=== PATIENT | female | born 1955 | race Caucasian/White ===

== ENCOUNTER → 2017-03-23 | Outpatient (CLI) | payer BC ==
[~2017-03-23] VITALS: Ht 162.6 cm; Wt 72.9 kg
[~2017-03-23] MED LIST: ADAL20KI INJ; BIOT1CAP8 PO; BTH25 PO; CHOL20009 PO; CITA20TA9 PO; DEXL60CA4 PO; FOLI1TAB7 PO; FRN PO; LEVAAER2 INH; MTH25 PO; PROP120C PO; QVRINH80 INH; RIZA10TA18 PO; SUMA6KIT2 SQ; TOPI50TA16 PO; TRAM-10 PO
[2017-03-23 15:03] VITALS: BP 125/80; PULSE 83; Ht 162.6 cm; Wt 72.9 kg
== END | disposition home or self-care (01) ==
LOC: C.NEUR 14:31
PROVIDERS: ATTEND Physician Assistant
DX: G47.61 Periodic limb movement disorder (principal)

== ENCOUNTER → 2017-11-02 | Outpatient (CLI) | payer BC ==
[~2017-11-02] MED LIST changes: -FOLI1TAB7 PO; +FOLI1TAB8 PO; +QUDEXY PO; -TOPI50TA16 PO
[2017-11-02 13:19] LABS: BASO % 1.6 %; BASO ABS # 0.06 K/uL (0-0.2); EOS % 4.1 %; EOS ABS # 0.16 K/uL (0-0.5); HEMATOCRIT 36.9 % (37-47); HEMOGLOBIN 12.9 g/dL (12.0-16.0); LYMPH % 35.7 %; LYMPH ABS # 1.38 K/uL (1.2-3.4); MEAN CELL VOLUME 92.3 fL (80-100); MEAN CORPUSCULAR HEMOGLOBIN 32.3 pg (25-34); MEAN PLATELET VOLUME 9.1 fL (7.4-10.4); MONO % 10.3 %; NEUT % 48.3 %; NEUT ABS # 1.87 K/uL (1.4-6.5); PLATELET COUNT 289 K/uL (130-400); RED CELL DISTRIBUTION WIDTH CV 14.1 % (11.5-14.5); RED CELL DISTRIBUTION WIDTH SD 47.5 fL (36.4-46.3); WHITE BLOOD COUNT 3.87 K/uL (4.8-10.8)
[2017-11-02 15:52] LABS: ALBUMIN 3.9 gm/dl (3.4-5.0); ALT/SGPT 29 U/L (12-78); AST/SGOT 20 U/L (15-37); BLOOD UREA NITROGEN 10 mg/dl (7-18); CALCIUM 9.1 mg/dl (8.5-10.1); CARBON DIOXIDE 26 mmol/L (21-32); CREATININE 0.68 mg/dl (0.60-1.20); GLUCOSE 85 mg/dl (70-99); POTASSIUM 3.9 mmol/L (3.5-5.1); SODIUM 139 mmol/L (136-145)
[2017-11-02 16:03] LABS: ALKALINE PHOSPHATASE 70 U/L (45-117); CHOLESTEROL 280 mg/dl (0-200); LDL CHOLESTEROL CALCULATED 194 mg/dl; TOTAL PROTEIN 7.1 gm/dl (6.4-8.2)
== END | disposition home or self-care (01) ==
LOC: C.LABBC 10:34
PROVIDERS: ATTEND Internal Medicine Geriatric Medicine
DX: D64.9 Anemia, unspecified (principal); E78.5 Hyperlipidemia, unspecified; I10 Essential (primary) hypertension; M06.9 Rheumatoid arthritis, unspecified; G43.709 Chronic migraine without aura, not intractable, without status migrainosus

== ENCOUNTER → 2018-03-18 | Outpatient (CLI) | payer BC ==
[~2018-03-18] VITALS: Ht 165.1 cm; Wt 72.2 kg
[~2018-03-18] MED LIST changes: -BTH25 PO; -CITA20TA9 PO; +DTR2 PO; -PROP120C PO; -QUDEXY PO; -TRAM-10 PO
[2018-03-18 15:22] VITALS: BP 109/71; PULSE 73; Ht 165.1 cm; Wt 72.2 kg
== END | disposition home or self-care (01) ==
LOC: C.NEUR 13:53
PROVIDERS: ATTEND Physician Assistant
DX: G47.61 Periodic limb movement disorder (principal); F41.8 Other specified anxiety disorders; I10 Essential (primary) hypertension; Z79.899 Other long term (current) drug therapy

== ENCOUNTER 2022-08-14 13:36 | Observation (INO) ==
[2022-08-14] MEDS ORDERED: SODIUM CHLORIDE 0.9% 500 ML IV STA (14:07)
--- NOTE | 2022-08-14 14:12 | Emergency Department Note ---
Impression & Plan Palpitations, Precordial chest pain, Elevated troponin ED Provider Note NAME: MAIRA RYAN AGE: 67 SEX: F : 1955 ARRIVES VIA: Ambulance INFORMANT: [Patient] ED PROVIDER(S): [Danny Marx MD] CHIEF COMPLAINT: Chest pain, palpitations HISTORY OF PRESENT ILLNESS: The patient is a 67-year-old female who presents with an episode of palpitations and chest pain that started about 3 hours ago. The whole episode lasted about 30 minutes. The chest pain was described as mild. More so, she felt her heart racing. She felt nauseated, no sweating or shortness of breath. She felt somewhat faint. The patient had been shoveling snow, she felt fine shelving. She went into the house and sat down. While she was sitting, her heart began to race. The heart rate was over 200 by her count. She has no previous cardiac history, no history of diagnosed SVT, A. fib or a flutter. The patient states that she is very active on a daily basis. She typically shovels snow without any difficulty. She has been in baseline health lately. REVIEW OF SYSTEMS: See HPI for pertinent positives and negatives. A total of ten systems were reviewed and were otherwise negative. PMHx/PSHx: See Below SOCIAL HISTORY: See Below. PHYSICAL EXAM: GENERAL: Patient is in no acute distress. HEENT: No acute trauma, normocephalic atraumatic, mucous membranes moist, no nasal congestion, no scleral icterus. NECK: No stridor, no adenopathy, no meningismus, trachea is midline. LUNGS: Clear to auscultation bilaterally, no wheeze, no rhonchi, breath sounds equal. HEART: Without murmurs gallops or rubs, regular rate and rhythm. ABDOMEN: Soft, nontender, bowel sounds positive, no peritonitis. EXTREMITIES: No cyanosis or edema, full range of motion of all the joints wi thout pain or difficulty, no signs for acute trauma. NEUROLOGIC: Oriented x 3, no acute motor or sensory deficits, no focal weakness. SKIN: No rash, no jaundice, no diaphoresis. DIFFERENTIAL DIAGNOSIS: SVT, atrial fibrillation, atrial flutter, sinus tachycardia, V. tach, electr olyte imbalance, thyroid disorder, HI, among others. EMERGENCY DEPARTMENT COURSE/PROCEDURES: ECG: Indication was chest pain and palpitations. The ECG shows a normal sinus rhythm with a rate of 92. There is no ST elevation, no PVCs. The QTc is 425. Continuous Cardiac Monitoring: An order was placed for continuous cardiac jeremias toring. The monitor shows a rate of 91 with normal sinus rhythm. MEDICAL DECISION MAKING: There is no leukocytosis. There is a normal hemoglobin and platelet count. Potassium slightly low at 3.4, no renal failure. No concerning liver enzyme elevation. ECG showed a normal sinus rhythm, no dysrhythmia or ischemia. Initial cardiac troponin was normal. Second troponin showed elevation and a rise from the first. The second value was 22. Chest x-ray does not show mediastinal widening, pneumonia or pneumothorax. No pancreatitis. No thyroid dysfunction by our testing. The patient was given a 500 cc saline bolus, she has been resting comfortably. She has remained in a sinus rhythm on the supervisor refractory products. I did speak with cardiology. A third troponin value has been ordered. If the third value shows a continued rise, a hospital stay for cardiac monitoring and f urther cardiac work-up is recommended. If the third troponin is stable, the patient is to be discharged with outpatient cardiology follow-up. The patient's care is being assumed by Dr. Rangel at the change of shift, please see her note. Past Med/Surg History Medical History Anemia Asthma well controlled Chronic migraine Colitis suspected. Depression with anxiety Dyslipidemia managed with diet and exercise Esophageal stricture Gastroparesis GERD (gastroesophageal reflux disease) History of esophageal dilatation History of rheumatic fever Hypertension pt denies Irritable bowel syndrome with diarrhea Migraine Periodic limb movement disorder Rheumatoid arthritis Rosacea SCC (squamous cell carcinoma) skin Vitamin D deficiency Weight loss, unintentional ~35lbs over the last 5 months. Surgical History H/O abdominal surgery x5 H/O Achilles tendon repair right H/O arthroscopy of shoulder Left H/O section x3 H/O unilateral salpingectomy after a later date s/p initial hysterectomy and SO History of appendectomy History of esophagogastroduodenoscopy (EGD) History of hysterectomy abdominal hyster with unilateral salpino-oopherectomy History of nasal surgery History of surgical removal of skin lesion S/P cholecystectomy S/P epidural steroid injection S/P foot surgery, right hammer toe S/P hip arthroscopy left Family History Father Epilepsy Vascular disorder Daughter Congenital heart disease Mother Dementia Hypertension Asthma Aunt Breast cancer Other History of blood clots No family history of adverse response to anesthesia Denies family history of Ovarian cancer Prostate cancer Myocardial infarction Colorectal cancer Social History Smoking Status: Never smoker Second Hand Exposure: No; Hx Alcohol Use: Yes Alcohol type: wine Alcohol Intake Frequency: Monthly or Less Hx Substance Use: No Preferred Language: Arabic Communication Ability: Effective Visual Impairment: No Limitations Hearing Ability: Normal Road Contractor Required: No Beliefs That Will Affect Care: None marital status: Current Living Situation: Family Current Living Situation Comment: lives with handicap daughter current occupational status: retired How many Children do You have: 3 Feels Safe at Home: Yes Childhood Exposure to Second-Hand Smoke: No caffeine: Yes during the past year weight has: remained stable Dental Care, Regularly: Yes Physical Activity Frequency: Daily Seatbelt Use: always Sunscreen Use: Yes Assistive Devices: Glasses Allergies Allergies Allergy/AdvReac Type Severity Reaction Status Date / Time Penicillins Allergy Severe hives Verified 07/09/22 13:40 fluvastatin Allergy Intermediate MUSCLE Verified 07/09/22 13:40 CRAMPS AND PAIN atorvastatin Allergy Mild MUSCLE Verified 07/09/22 13:40 CRAMPS & PAIN fentanyl Allergy Mild HIVES Verified 07/09/22 13:40 pravastatin Allergy Mild MUSCLE Verified 07/09/22 13:40 CRAMPS & CRAMPS rosuvastatin Allergy Mild MUSCLE Verified 07/09/22 13:40 CRAMPS & PAIN simvastatin Allergy Mild MUSCLE Verified 07/09/22 13:40 CRAMPS & PAIN Bactrim AdvReac Intermediate severe Verified 03/24/18 14:09 nausea and vomiting ezetimibe AdvReac Intermediate MUSCLE Verified 07/09/22 13:40 CRAMPS AND PAIN sulfamethoxazole AdvReac Intermediate severe Verified 07/09/22 13:40 nausea and vomiting trimethoprim AdvReac Intermediate severe Verified 07/09/22 13:40 nausea and vomiting divalproex sodium AdvReac Unknown Verified 08/14/22 17:44 [From Depakote] omega-3 acid ethyl esters AdvReac Unknown Verified 08/14/22 17:44 [From Lovaza] topiramate [From Topamax] AdvReac Unknown Verified 08/14/22 17:44 Home Meds Home Medications Medication Instructions Recorded Confirmed prednisone 10 mg tablet 10 mg PO DAILY PRN rheumatoid 09/12/19 08/14/22 arthritis flare up adalimumab 40 mg/0.8 mL 40 mg subcut Q14D 01/25/21 08/14/22 subcutaneous pen kit (Humira Pen) ibuprofen 200 mg tablet 600 mg PO DAILY PRN Pain 01/25/21 08/14/22 onabotulinumtoxinA 100 unit See Rx Instructions .Route 01/25/21 08/14/22 solution for injection (Botox) .COMPLEX migraine beclomethasone dipropionate 80 1 inh inhalation BID PRN Shortness 05/07/22 08/14/22 mcg/actuation HFA breath activated Of Breath Or Wheezing aerosol (Qvar RediHaler) cholecalciferol (vitamin D3) 125 125 mcg PO DAILY 08/14/22 08/14/22 mcg (5,000 unit) tablet (Vitamin D3) Previous Rx's Medication Instructions Recorded folic acid 1 mg tablet 1 mg PO QAM #30 tabs 02/17/19 levalbuterol tartrate 45 2 puff inhalation Q6H PRN 02/17/19 mcg/actuation aerosol inhaler Shortness Of Breath Or Wheezing (Xopenex HFA) #15 grams methotrexate sodium 2.5 mg tablet 15 mg PO WK #6 tabs 02/17/19 mvgtdiysye-sowezmeuxftzw-oycirfsc 2 tab PO DAILY PRN Migraine 12/31/20 50 mg-325 mg-40 mg tablet Headache #15 tabs loperamide 2 mg capsule 2 mg PO Q6H PRN loose stool #30 02/25/21 (Anti-Diarrheal (loperamide)) caps lorazepam 0.5 mg tablet 0.5 mg PO Q8H PRN anxiety #30 tabs 01/23/22 sumatriptan succinate 6 mg/0.5 mL 6 mg (0.5 mL) subcut .COMPLEX PRN 03/24/22 subcutaneous pen injector migraine headache 90 days #6 mL rizatriptan 10 mg disintegrating 10 mg PO .COMPLEX PRN Migraine 05/16/22 tablet Headache 90 days #27 tabs dexlansoprazole 60 mg 60 mg PO QAM #30 caps 07/16/22 capsule,biphase delayed release (Dexilant) erythromycin 250 mg tablet 250 mg PO TIDM gastroparesis #90 08/14/22 tabs Results & Data (ED) Vital Signs Vital Signs - 24 hr 08/14/22 13:41 08/14/22 14:10 08/14/22 15:41 Temperature 37.0 C Temperature Source Oral Pulse Rate 91 H Pulse Rate [Apical] 75 Pulse Rate from SpO2 Sensor Pulse Rhythm Regular Pulse Strength Normal Respiratory Rate 18 18 Respiratory Effort / Characteristics Non-Labored Respiratory Depth Normal Respiratory Pattern Regular Blood Pressure 162/80 H Blood Pressure [Left Arm] 135/82 Blood Pressure Mean 107 Blood Pressure Mean [Left Arm] 99 Blood Pressure Position Lying Pulse Oximetry 98 98 Oxygen Delivery Method Room Air Room Air Sepsis Recent Fever Within 48 Hours No Sepsis New/Unexplained Change in Mental Status No Sepsis Action Taken by Nursing No Action Required 08/14/22 13:44 08/14/22 13:48 08/14/22 13:48 Temperature Temperature Source Pulse Rate 96 H 100 H Pulse Rate [Apical] Pulse Rate from SpO2 Sensor Pulse Rhythm Pulse Strength Respiratory Rate 15 20 Respiratory Effort / Characteristics Respiratory Depth Respiratory Pattern Blood Pressure 159/94 H Blood Pressure [Left Arm] Blood Pressure Mean 115 Blood Pressure Mean [Left Arm] Blood Pressure Position Pulse Oximetry Oxygen Delivery Method Sepsis Recent Fever Within 48 Hours Sepsis New/Unexplained Change in Mental Status Sepsis Action Taken by Nursing 08/14/22 14:00 08/14/22 14:00 08/14/22 14:30 Temperature Temperature Source Pulse Rate 91 H 86 Pulse Rate [Apical] Pulse Rate from SpO2 Sensor 92 H 86 Pulse Rhythm Pulse Strength Respiratory Rate 20 12 Respiratory Effort / Characteristics Respiratory Depth Respiratory Pattern Blood Pressure 155/107 H Blood Pressure [Left Arm] Blood Pressure Mean 123 Blood Pressure Mean [Left Arm] Blood Pressure Position Pulse Oximetry 100 99 Oxygen Delivery Method Sepsis Recent Fever Within 48 Hours Sepsis New/Unexplained Change in Mental Status Sepsis Action Taken by Nursing 08/14/22 14:30 08/14/22 14:45 08/14/22 14:45 Temperature Temperature Source Pulse Rate 89 Pulse Rate [Apical] Pulse Rate from SpO2 Sensor 87 Pulse Rhythm Pulse Strength Respiratory Rate 20 Respiratory Effort / Characteristics Respiratory Depth Respiratory Pattern Blood Pressure 127/83 146/84 H Blood Pressure [Left Arm] Blood Pressure Mean 97 104 Blood Pressure Mean [Left Arm] Blood Pressure Position Pulse Oximetry 98 Oxygen Delivery Method Sepsis Recent Fever Within 48 Hours Sepsis New/Unexplained Change in Mental Status Sepsis Action Taken by Nursing 08/14/22 15:00 08/14/22 15:00 08/14/22 15:15 Temperature Temperature Source Pulse Rate 87 Pulse Rate [Apical] Pulse Rate from SpO2 Sensor 85 Pulse Rhythm Pulse Strength Respiratory Rate 17 Respiratory Effort / Characteristics Respiratory Depth Respiratory Pattern Blood Pressure 146/82 H 136/83 Blood Pressure [Left Arm] Blood Pressure Mean 103 100 Blood Pressure Mean [Left Arm] Blood Pressure Position Pulse Oximetry 100 Oxygen Delivery Method Sepsis Recent Fever Within 48 Hours Sepsis New/Unexplained Change in Mental Status Sepsis Action Taken by Nursing 08/14/22 15:15 08/14/22 15:30 08/14/22 15:30 Temperature Temperature Source Pulse Rate 89 76 Pulse Rate [Apical] Pulse Rate from SpO2 Sensor 91 H 77 Pulse Rhythm Pulse Strength Respiratory Rate 19 16 Respiratory Effort / Characteristics Respiratory Depth Respiratory Pattern Blood Pressure 141/88 H Blood Pressure [Left Arm] Blood Pressure Mean 105 Blood Pressure Mean [Left Arm] Blood Pressure Position Pulse Oximetry 91 99 Oxygen Delivery Method Sepsis Recent Fever Within 48 Hours Sepsis New/Unexplained Change in Mental Status Sepsis Action Taken by Nursing 08/14/22 15:45 08/14/22 15:45 08/14/22 16:00 Temperature Temperature Source Pulse Rate 79 Pulse Rate [Apical] Pulse Rate from SpO2 Sensor 78 Pulse Rhythm Pulse Strength Respiratory Rate 17 Respiratory Effort / Characteristics Respiratory Depth Respiratory Pattern Blood Pressure 132/84 146/79 H Blood Pressure [Left Arm] Blood Pressure Mean 100 101 Blood Pressure Mean [Left Arm] Blood Pressure Position Pulse Oximetry 97 Oxygen Delivery Method Sepsis Recent Fever Within 48 Hours Sepsis New/Unexplained Change in Mental Status Sepsis Action Taken by Nursing 08/14/22 16:00 08/14/22 16:15 08/14/22 16:15 Temperature Temperature Source Pulse Rate 73 78 Pulse Rate [Apical] Pulse Rate from SpO2 Sensor 84 77 Pulse Rhythm Pulse Strength Respiratory Rate 17 13 Respiratory Effort / Characteristics Respiratory Depth Respiratory Pattern Blood Pressure 144/83 H Blood Pressure [Left Arm] Blood Pressure Mean 103 Blood Pressure Mean [Left Arm] Blood Pressure Position Pulse Oximetry 85 L 98 Oxygen Delivery Method Sepsis Recent Fever Within 48 Hours Sepsis New/Unexplained Change in Mental Status Sepsis Action Taken by Nursing 08/14/22 16:30 08/14/22 16:30 08/14/22 16:45 Temperature Temperature Source Pulse Rate 75 86 Pulse Rate [Apical] Pulse Rate from SpO2 Sensor 78 73 Pulse Rhythm Pulse Strength Respiratory Rate 20 14 Respiratory Effort / Characteristics Respiratory Depth Respiratory Pattern Blood Pressure 135/82 Blood Pressure [Left Arm] Blood Pressure Mean 99 Blood Pressure Mean [Left Arm] Blood Pressure Position Pulse Oximetry 99 99 Oxygen Delivery Method Sepsis Recent Fever Within 48 Hours Sepsis New/Unexplained Change in Mental Status Sepsis Action Taken by Nursing 08/14/22 16:45 08/14/22 17:00 08/14/22 17:00 Temperature Temperature Source Pulse Rate 80 Pulse Rate [Apical] Pulse Rate from SpO2 Sensor 75 Pulse Rhythm Pulse Strength Respiratory Rate 16 Respiratory Effort / Characteristics Respiratory Depth Respiratory Pattern Blood Pressure 135/87 138/84 Blood Pressure [Left Arm] Blood Pressure Mean 103 102 Blood Pressure Mean [Left Arm] Blood Pressure Position Pulse Oximetry 96 Oxygen Delivery Method Sepsis Recent Fever Within 48 Hours Sepsis New/Unexplained Change in Mental Status Sepsis Action Taken by Nursing 08/14/22 17:15 08/14/22 17:15 08/14/22 17:30 Temperature Temperature Source Pulse Rate 78 Pulse Rate [Apical] Pulse Rate from SpO2 Sensor 78 Pulse Rhythm Pulse Strength Respiratory Rate 14 Respiratory Effort / Characteristics Respiratory Depth Respiratory Pattern Blood Pressure 128/94 138/103 H Blood Pressure [Left Arm] Blood Pressure Mean 105 114 Blood Pressure Mean [Left Arm] Blood Pressure Position Pulse Oximetry 100 Oxygen Delivery Method Sepsis Recent Fever Within 48 Hours Sepsis New/Unexplained Change in Mental Status Sepsis Action Taken by Nursing 08/14/22 17:30 08/14/22 17:47 08/14/22 17:47 Temperature Temperature Source Pulse Rate 72 75 Pulse Rate [Apical] Pulse Rate from SpO2 Sensor 74 73 Pulse Rhythm Pulse Strength Respiratory Rate 16 18 Respiratory Effort / Characteristics Respiratory Depth Respiratory Pattern Blood Pressure 171/72 H Blood Pressure [Left Arm] Blood Pressure Mean 105 Blood Pressure Mean [Left Arm] Blood Pressure Position Pulse Oximetry 100 99 Oxygen Delivery Method Sepsis Recent Fever Within 48 Hours Sepsis New/Unexplained Change in Mental Status Sepsis Action Taken by Nursing 08/14/22 18:00 08/14/22 18:00 08/14/22 18:15 Temperature Temperature Source Pulse Rate 87 Pulse Rate [Apical] Pulse Rate from SpO2 Sensor 89 Pulse Rhythm Pulse Strength Respiratory Rate 19 Respiratory Effort / Characteristics Respiratory Depth Respiratory Pattern Blood Pressure 155/101 H 143/90 H Blood Pressure [Left Arm] Blood Pressure Mean 119 107 Blood Pressure Mean [Left Arm] Blood Pressure Position Pulse Oximetry 100 Oxygen Delivery Method Sepsis Recent Fever Within 48 Hours Sepsis New/Unexplained Change in Mental Status Sepsis Action Taken by Nursing 08/14/22 18:15 Temperature Temperature Source Pulse Rate 83 Pulse Rate [Apical] Pulse Rate from SpO2 Sensor 78 Pulse Rhythm Pulse Strength Respiratory Rate 20 Respiratory Effort / Characteristics Respiratory Depth Respiratory Pattern Blood Pressure Blood Pressure [Left Arm] Blood Pressure Mean Blood Pressure Mean [Left Arm] Blood Pressure Position Pulse Oximetry 99 Oxygen Delivery Method Sepsis Recent Fever Within 48 Hours Sepsis New/Unexplained Change in Mental Status Sepsis Action Taken by Care Home Medications Current Medication List: was personally reviewed by me Laboratory Data Attestation: I reviewed the patient's lab results. Result diagrams: 08/14/22 Unknown 08/14/22 Unknown Lab Results 08/14/22 08/14/22 08/14/22 Range/Units 16:21 Unknown Unknown WBC (4.8-10.8) K/ul RBC (3.93-5.22) M/uL Hgb (12.0-16.0) g/dl Hct (34.1-44.9) % MCV (80.0-100.0) fL MCH (25.0-34.0) pg MCHC (32.0-36.0) g/dL RDW Std Deviation (36.4-46.3) fL RDW Coeff of Aminata (11.5-14.5) % Plt Count (130-400) K/uL MPV (9.4-12.3) fL Immature Gran % (Auto) % Neut % (Auto) % Lymph % (Auto) % [place] % (Auto) % Eos % (Auto) % Baso % (Auto) % Neut # (Auto) (1.4-6.5) K/uL Lymph # (Auto) (1.2-3.4) K/uL [place] # (Auto) (0.24-0.82) K/uL Eos # (Auto) (0-0.50) K/uL Baso # (Auto) (0-0.2) K/uL Immature Gran # (Auto) (0.00-0.02) K/uL Sodium 139 (136-145) mmol/L Potassium 3.4 L (3.5-5.1) mmol/L Chloride 101 (98-107) mmol/L Carbon Dioxide 27 (21-32) mmol/L Anion Gap 11 (3-11) BUN 7 (6-23) mg/dl Creatinine 0.62 (0.6-1.2) mg/dl Est Cr Clr Drug Dosing 76.0 ml/min Est GFR ( Amer) 108.1 ml/min Est GFR (Non-Af Amer) 93.3 ml/min BUN/Creatinine Ratio 11.3 (10-20) Glucose 78 (70-99(Fasting)) mg/dl Calcium 10.4 H (8.5-10.1) mg/dl Magnesium 2.1 (1.7-2.4) mg/dl Total Bilirubin 0.8 (0.2-1.0) mg/dl AST 65 H (13-39) U/L ALT 52 (7-52) U/L Alkaline Phosphatase 74 (34-104) U/L Troponin I High Sens 22.8 H D 4.4 (0-14) pg/ml Total Protein 8.2 (6.0-8.3) gm/dl Albumin 5.1 H (3.4-5.0) gm/dl Globulin 3.1 (2.5-4.0) gm/dl Albumin/Globulin Ratio 1.6 (0.9-2) Lipase 22 (11-82) U/L TSH 1.305 (0.300-4.500) uIu/ml 08/14/22 Range/Units Unknown WBC 4.27 L (4.8-10.8) K/ul RBC 4.51 (3.93-5.22) M/uL Hgb 14.7 (12.0-16.0) g/dl Hct 41.6 (34.1-44.9) % MCV 92.2 (80.0-100.0) fL MCH 32.6 (25.0-34.0) pg MCHC 35.3 (32.0-36.0) g/dL RDW Std Deviation 43.8 (36.4-46.3) fL RDW Coeff of Aminata 13.3 (11.5-14.5) % Plt Count 298 (130-400) K/uL MPV 9.6 (9.4-12.3) fL Immature Gran % (Auto) 0.2 % Neut % (Auto) 55.5 % Lymph % (Auto) 31.9 % [place] % (Auto) 9.1 % Eos % (Auto) 1.9 % Baso % (Auto) 1.4 % Neut # (Auto) 2.37 (1.4-6.5) K/uL Lymph # (Auto) 1.36 (1.2-3.4) K/uL [place] # (Auto) 0.39 (0.24-0.82) K/uL Eos # (Auto) 0.08 (0-0.50) K/uL Baso # (Auto) 0.06 (0-0.2) K/uL Immature Gran # (Auto) 0.01 (0.00-0.02) K/uL Sodium (136-145) mmol/L Potassium (3.5-5.1) mmol/L Chloride (98-107) mmol/L Carbon Dioxide (21-32) mmol/L Anion Gap (3-11) BUN (6-23) mg/dl Creatinine (0.6-1.2) mg/dl Est Cr Clr Drug Dosing ml/min Est GFR ( Amer) ml/min Est GFR (Non-Af Amer) ml/min BUN/Creatinine Ratio (10-20) Glucose (70-99(Fasting)) mg/dl Calcium (8.5-10.1) mg/dl Magnesium (1.7-2.4) mg/dl Total Bilirubin (0.2-1.0) mg/dl AST (13-39) U/L ALT (7-52) U/L Alkaline Phosphatase (34-104) U/L Troponin I High Sens (0-14) pg/ml Total Protein (6.0-8.3) gm/dl Albumin (3.4-5.0) gm/dl Globulin (2.5-4.0) gm/dl Albumin/Globulin Ratio (0.9-2) Lipase (11-82) U/L TSH (0.300-4.500) uIu/ml Administered Medications Discontinued Medications Sodium Chloride (Nss) 500 mls @ 999 mls/hr IV .Q31M STA Stop: 08/14/22 14:37 Last Infusion: 08/14/22 15:03 Dose: 0 mls/hr Documented By: Admin: 08/14/22 14:22 Dose: 999 mls/hr Documented By: OL Imaging Data Radiologist's Impression: Chest X-Ray 08/14/22 14:08 XR chest 1V portable HISTORY: Atypical Chest pain, nonspecific COMPARISON: Chest 11/15/2015. FINDINGS: No pneumothorax. No pleural effusions. The lungs are clear. The heart is normal in size. Prior cholecystectomy. IMPRESSION: No acute process. ACT 112: Negative or not required by law. Electronically signed by: Lazaro Gamboa M.D. 08/14/2022 2:34 PM Discharge Plan Visit Data Chief Complaint: Chest Pain Stated Complaint: CHEST PAIN, DIZZINESS, PALPITATIONS ED Provider: Tiffanie Rangel Discharge Problem: Palpitations, Precordial chest pain, Elevated troponin Patient Disposition: Still a Patient Condition: Good Forms Stand Alone Forms: Gusto Prescriptions Prescriptions: No Action loperamide [Anti-Diarrheal (loperamide)] 2 mg capsule 2 mg PO Q6H PRN (Reason: loose stool) Qty: 30 2RF lorazepam 0.5 mg tablet 0.5 mg PO Q8H PRN (Reason: anxiety) Qty: 30 0RF rizatriptan 10 mg tablet,disintegrating 10 mg PO .COMPLEX PRN (Reason: Migraine Headache) 90 Days Qty: 27 3RF Rx Instructions: Take 1 at onset of migraine, may repeat after 2 hours prn, limit 2-3 days/week Dexilant 60 mg capsule,biphase delayed releas 60 mg PO QAM Qty: 30 4RF erythromycin 250 mg tablet 250 mg PO TIDM Qty: 90 0RF folic acid 1 mg tablet 1 mg PO QAM Qty: 30 0RF levalbuterol tartrate [Xopenex HFA] 45 mcg/actuation HFA aerosol inhaler 2 puff Inhalation Q6H PRN (Reason: Shortness Of Breath Or Wheezing) Qty: 15 0RF methotrexate sodium 2.5 mg tablet 15 mg PO WK Qty: 6 0RF Rx Instructions: thursday prednisone 10 mg tablet 10 mg PO DAILY PRN (Reason: rheumatoid arthritis flare up) Rx Instructions: take 40 mg first day then take 20 mg the next day as needed vpyuqccqjk-ooqdfyenoipuq-avhl 50-325-40 mg tablet 2 tab PO DAILY PRN (Reason: Migraine Headache) Qty: 15 0RF Rx Instructions: 2 days a week or less prn sumatriptan succinate 6 mg/0.5 mL pen injector 6 mg SQ .COMPLEX PRN (Reason: migraine headache) 90 Days Qty: 6 3RF Rx Instructions: Inject at onset of migraine, may repeat in 2 hours prn, limit to 2-3 days/week Qvar RediHaler 80 mcg/actuation HFA aerosol breath activated 1 inh INHALATION BID PRN (Reason: Shortness Of Breath Or Wheezing) Botox 100 unit recon soln See Rx Instructions .ROUTE .COMPLEX Rx Instructions: As directed, [facility] ; ibuprofen 200 mg tablet 600 mg PO DAILY PRN (Reason: Pain) Humira Pen 40 mg/0.8 mL pen injector kit 40 mg SUBCUT Q14D Rx Instructions: Fridays cholecalciferol (vitamin D3) [Vitamin D3] 125 mcg (5,000 unit) Tablet 125 mcg PO DAILY Referrals Referrals: Aurelia Cabral DO [Primary Care Provider] -
[2022-08-14 14:23] LABS: Basophils # (auto) 0.06 K/uL (0-0.2); Basophils % (auto) 1.4 %; Eosinophils # (auto) 0.08 K/uL (0-0.50); Eosinophils % (auto) 1.9 %; Hematocrit (blood only) 41.6 % (34.1-44.9); Hemoglobin 14.7 g/dl (12.0-16.0); Immature Granulocytes # (auto) 0.01 K/uL (0.00-0.02); Immature Granulocytes % (auto) 0.2 %; Lymphocytes # (auto) 1.36 K/uL (1.2-3.4); Lymphocytes % (auto) 31.9 %; Mean Corpuscular Hemoglobin 32.6 pg (25.0-34.0); Mean Corpuscular Hgb Conc 35.3 g/dL (32.0-36.0); Mean Corpuscular Volume 92.2 fL (80.0-100.0); Mean Platelet Volume 9.6 fL (9.4-12.3); Monocytes # (auto) 0.39 K/uL (0.24-0.82); Monocytes % (auto) 9.1 %; Neutrophils # (auto) 2.37 K/uL (1.4-6.5); Neutrophils % (auto) 55.5 %; Platelet Count 298 K/uL (130-400); RDW Coefficient of Variation 13.3 % (11.5-14.5); RDW Standard Deviation 43.8 fL (36.4-46.3); Red Blood Count 4.51 M/uL (3.93-5.22); White Blood Count 4.27 K/ul (4.8-10.8)
--- NOTE | 2022-08-14 14:36 | XRay Report ---
XR chest 1V portable HISTORY: Atypical Chest pain, nonspecific COMPARISON: Chest 11/15/2015. FINDINGS: No pneumothorax. No pleural effusions. The lungs are clear. The heart is normal in size. Pr ior cholecystectomy. IMPRESSION: No acute process. ACT 112: Negative or not required by law. Electronically signed by: Lazaro Gamboa M.D. 08/14/2022 2:34 PM
[2022-08-14 14:49] LABS: Albumin Globulin Ratio 1.6 (0.9-2); Albumin Level 5.1 gm/dl (3.4-5.0); BUN Creatinine Ratio 11.3 (10-20); Bilirubin,Total 0.8 mg/dl (0.2-1.0); Calcium 10.4 mg/dl (8.5-10.1); Est GFR (African American) 108.1 ml/min; Est GFR (Non-African American) 93.3 ml/min; Globulin 3.1 gm/dl (2.5-4.0); Magnesium 2.1 mg/dl (1.7-2.4); Potassium 3.4 mmol/L (3.5-5.1); Total Protein 8.2 gm/dl (6.0-8.3)
[2022-08-14 14:50] LABS: Troponin I High Sensitivity 4.4 pg/ml (0-14)
--- NOTE | 2022-08-14 20:25 | Emergency Department Note ---
ED Visit Note I received this patient in signout at the change of shift from Dr. Marx, pending third troponin per cardiology's recommendations. Third troponin is trending upward and the patient will be evaluated by the hospitalist service for further management. Patient is aware of the plan and agrees. .
--- NOTE | 2022-08-14 20:31 | History & Physical Report ---
Date of Service August 14, 2022 Assessment & Plan (1) Precordial chest pain: Plan: - Initial troponin 4.4, with 2-hour repeat 22.4, subsequent 2 hour repeat 33.1. - Patient had 30 minutes of chest palpitations and pain prior to presentation, which is since subsided but then has had some recurrence of left sided chst pain under hre breast nonreproducible, somewhat worse with inspirations, scale 2-3/10 - Will order nitropaste now. - Ddx includes unstable angina vs PE. She is HD stbale without any tachcyardia/hypoxia/hypotension, no calf enlargement but left calf is somehwta TTP with tortuous veins, which she does say look normal to her and w/o pain on anterior L leg - She has no previous cardiac history. - Left LE doppler US ordered to eval for VTE. - She will be admitted overnight for observation with troponin trended and echo in AM. - Lipid panel in AM. - Goal K > 4.0, Mg > 2.0 - Telemetry overnight to monitor for dysrhythmias (2) Elevated troponin: (3) Palpitations: (4) Hypertension: Plan: - No longer on medications, is moderately hypertensive in ED, could very well be environment related rather than true indication of BP control. Will monitor pressure overnight and intervene if she become symptomatic with recurrent chest pain. (5) Dyslipidemia: Plan: - Managed with diet, exercise. Has previously been statin intolerant. - Lipid panel as above for cardiac eval. (6) Asthma: Plan: - No evidence of acute exacerbation. Continue home inhalers. (7) GERD (gastroesophageal reflux disease): Plan: - Continue PPI therapy. (8) Gastroparesis: Plan: - Continue azithromycin TID w/ meals. (9) Irritable bowel syndrome with diarrhea: Plan: - Continue loperamide, Imodium prn. (10) Migraine headache: Plan: - Continue Tylenol or Excedrin, rizatriptan, or sumatriptan prn. - Follows w/ neurology as well as pain management for botox injections. (11) Rheumatoid arthritis: Plan: - Follows with Rheum, continue Humira, methotrexate w/ folate supplement, prednisone prn. (12) RLS (restless legs syndrome): Plan: - Continue Mirapex. Plan - OBS med/tele. - SCDs for VTE ppx. - Full Code. History of Present Illness Chief Complaint: chest pain x 30 minutes this afternoon Primary Care Provider: Aurelia Cabral DO Lita Coburn is a 67-year-old female with a past medical history significant for dyslipidemia, hypertension, asthma, rheumatoid arthritis, GERD, gastroparesis, IBS, depression, and anxiety who is presenting today with an episode of chest pain at home. Patient had been shoveling snow outside this morning and actually felt fine while shoveling, however it was when she went into the house to sit down when she felt her heart began to race. She was on the phont with a friend when she suddenly felt her heart pound, became dizzy with chest pain and abruptly ended her call to call an ambulance. She estimates her heart rate had been in the 200s was associated with a mild central chest pain. She felt nauseous during the event without any vomiting, pain in her arms, shoulders, neck, jaw, or back. She was not short of breath or diaphoretic. The episode lasted 30 minutes before subsiding on its own. She denies any unilateral leg swelling or leg pain, pain with respirations during the event, but does has some mild low left chest pain with respirations now, very minor and she questions if this is GI related with her multiple GI issues. No recent upper respiratory illnesses or sick contacts. Patient has no cardiac history, specifically denies a history of heart attacks, heart failure, atrial fibrillation, or other dysrhythmias. She has one older sister with unspecified cardiac disease after age 65 and a daughter with congenital heart defect. No other siblings or parents with cardiac disease. She is regularly active, doing all her own yard work and has never experienced chest pain palpitations like this before with any activity. She does not smoke, drinks ~1-2 glasses of wine/month, not a diabetic but notes her cholesterol has always been high but statins make her achy. She is open to trying statin therapy again if it is recommended. On presentation to the ED, she is hemodynamically stable and all vital signs are within normal limits. Labs notable for an initial troponin of 4.4 that elevated to 22.8 after 2 hours while in the ED, WBC of 4, potassium 3.4, AST 65, otherwise labs within normal limits. CXR unremarkable. Her EKG on presentation shows normal sinus rhythm without any ST segment or T wave changes. Allergies Allergy/AdvReac Type Severity Reaction Status Date / Time Penicillins Allergy Severe hives Verified 07/09/22 13:40 fluvastatin Allergy Intermediate MUSCLE Verified 07/09/22 13:40 CRAMPS AND PAIN atorvastatin Allergy Mild MUSCLE Verified 07/09/22 13:40 CRAMPS & PAIN fentanyl Allergy Mild HIVES Verified 07/09/22 13:40 pravastatin Allergy Mild MUSCLE Verified 07/09/22 13:40 CRAMPS & CRAMPS rosuvastatin Allergy Mild MUSCLE Verified 07/09/22 13:40 CRAMPS & PAIN simvastatin Allergy Mild MUSCLE Verified 07/09/22 13:40 CRAMPS & PAIN Bactrim AdvReac Intermediate severe Verified 03/24/18 14:09 nausea and vomiting ezetimibe AdvReac Intermediate MUSCLE Verified 07/09/22 13:40 CRAMPS AND PAIN sulfamethoxazole AdvReac Intermediate severe Verified 07/09/22 13:40 nausea and vomiting trimethoprim AdvReac Intermediate severe Verified 07/09/22 13:40 nausea and vomiting divalproex sodium AdvReac Unknown Verified 08/14/22 17:44 [From Depakote] omega-3 acid ethyl esters AdvReac Unknown Verified 08/14/22 17:44 [From Lovaza] topiramate [From Topamax] AdvReac Unknown Verified 08/14/22 17:44 Home Medications Medication Instructions Recorded Confirmed Type folic acid 1 mg tablet 1 mg PO QAM #30 tabs 02/17/19 08/14/22 Rx levalbuterol tartrate 45 2 puff inhalation Q6H PRN 02/17/19 08/14/22 Rx mcg/actuation aerosol inhaler Shortness Of Breath Or Wheezing (Xopenex HFA) #15 grams methotrexate sodium 2.5 mg tablet 15 mg PO WK #6 tabs 02/17/19 08/14/22 Rx prednisone 10 mg tablet 10 mg PO DAILY PRN rheumatoid 09/12/19 08/14/22 History arthritis flare up itmcjjzflf-dpnutnqmvbhkr-rtbzmvoe 2 tab PO DAILY PRN Migraine 12/31/20 08/14/22 Rx 50 mg-325 mg-40 mg tablet Headache #15 tabs adalimumab 40 mg/0.8 mL 40 mg subcut Q14D 01/25/21 08/14/22 History subcutaneous pen kit (Humira Pen) ibuprofen 200 mg tablet 600 mg PO DAILY PRN Pain 01/25/21 08/14/22 History onabotulinumtoxinA 100 unit See Rx Instructions .Route 01/25/21 08/14/22 History solution for injection (Botox) .COMPLEX migraine loperamide 2 mg capsule 2 mg PO Q6H PRN loose stool #30 02/25/21 08/14/22 Rx (Anti-Diarrheal (loperamide)) caps lorazepam 0.5 mg tablet 0.5 mg PO Q8H PRN anxiety #30 tabs 01/23/22 08/14/22 Rx sumatriptan succinate 6 mg/0.5 mL 6 mg (0.5 mL) subcut .COMPLEX PRN 03/24/22 08/14/22 Rx subcutaneous pen injector migraine headache 90 days #6 mL beclomethasone dipropionate 80 1 inh inhalation BID PRN Shortness 05/07/22 08/14/22 History mcg/actuation HFA breath activated Of Breath Or Wheezing aerosol (Qvar RediHaler) rizatriptan 10 mg disintegrating 10 mg PO .COMPLEX PRN Migraine 05/16/22 08/14/22 Rx tablet Headache 90 days #27 tabs dexlansoprazole 60 mg 60 mg PO QAM #30 caps 07/16/22 08/14/22 Rx capsule,biphase delayed release (Dexilant) cholecalciferol (vitamin D3) 125 125 mcg PO DAILY 08/14/22 08/14/22 History mcg (5,000 unit) tablet (Vitamin D3) erythromycin 250 mg tablet 250 mg PO TIDM gastroparesis #90 08/14/22 08/14/22 Rx tabs Past Med/Surg History Medical History Anemia Asthma well controlled Chronic migraine Colitis suspected. Depression with anxiety Dyslipidemia managed with diet and exercise Esophageal stricture Gastroparesis GERD (gastroesophageal reflux disease) History of esophageal dilatation History of rheumatic fever Hypertension pt denies Irritable bowel syndrome with diarrhea Migraine Periodic limb movement disorder Rheumatoid arthritis Rosacea SCC (squamous cell carcinoma) skin Vitamin D deficiency Weight loss, unintentional ~35lbs over the last 5 months. Surgical History H/O abdominal surgery x5 H/O Achilles tendon repair right H/O arthroscopy of shoulder Left H/O section x3 H/O unilateral salpingectomy after a later date s/p initial hysterectomy and SO History of appendectomy History of esophagogastroduodenoscopy (EGD) History of hysterectomy abdominal hyster with unilateral salpino-oopherectomy History of nasal surgery History of surgical removal of skin lesion S/P cholecystectomy S/P epidural steroid injection S/P foot surgery, right hammer toe S/P hip arthroscopy left Family History Father Epilepsy Vascular disorder Daughter Congenital heart disease Mother Dementia Hypertension Asthma Aunt Breast cancer Other History of blood clots No family history of adverse response to anesthesia Denies family history of Ovarian cancer Prostate cancer Myocardial infarction Colorectal cancer Social History Smoking Status: Former smoker Second Hand Exposure: No; Hx Alcohol Use: Yes Alcohol type: wine Alcohol Intake Frequency: Monthly or Less Hx Substance Use: No Preferred Language: Frisian Communication Ability: Effective Visual Impairment: No Limitations Hearing Ability: Normal Spray Worker Required: No Beliefs That Will Affect Care: None marital status: Current Living Situation: Family Current Living Situation Comment: lives with handicap daughter current occupational status: retired How many Children do You have: 3 Feels Safe at Home: Yes Childhood Exposure to Second-Hand Smoke: No caffeine: Yes during the past year weight has: remained stable Dental Care, Regularly: Yes Physical Activity Frequency: Daily Seatbelt Use: always Sunscreen Use: Yes Assistive Devices: None Review of Systems Review of Systems: Constitutional: No fever/chills, weakness, fatigue, myalgias, anorexia, night sweats Eyes: No diplopia, no worsening or blurred vision ENT: normal hearing, no trouble swallowing Respiratory: No cough, sputum, dyspnea at rest or on exertion Cardiovascular: rapid heart rate with dizziness, chest pain this morning after shoveling snow, self resolved within 30 minutes; now with mild left pain under left breast Abdomen: No pain, nausea, vomiting, diarrhea or constipation : Denies dysuria, hematuria, increased urgency/frequency, urinary retention Musculoskeletal: No joint pain, calf pain, swelling Neurologic: No weakness, numbness/tingling, or balance problems Psychiatric: No anxiety or depression Skin: No rash or itch Physical Exam Physical Exam: General: awake, alert, no apparent distress Head: Normocephalic, atraumatic ENT: PERRL, EOMI, no pharyngeal exudate, mucous membranes moist Chest: Clear to auscultation, on room air, no adventitious breath sounds Cardiac: Regular rate and rhythm, no murmur, no JVD, normal peripheral pulses, good capillary refill Abdominal: NABS x 4 quadrants, soft, nontender to palpation, no rebound, guarding or tenderness Extremities: Normal inspection, no peripheral edema or erythema, calfs nontender to palpation Psych: Normal mood and affect Neuro: AAO x 3, strength intact bilaterally and rated 5/5, no motor deficits, speech is clear, no peripheral sensory deficits Skin: no rash or erythema Results & Data Results & Data ([facility]) Vital Signs (Past 12 Hours) Vital Signs Temp Pulse Pulse Resp BP BP Pulse Ox 08/14/22 19:15 75 14 154/74 H 95 08/14/22 19:00 77 18 140/98 99 08/14/22 18:45 79 14 141/90 H 98 08/14/22 18:15 83 20 99 08/14/22 18:15 143/90 H 08/14/22 18:00 87 19 100 08/14/22 18:00 155/101 H 08/14/22 17:47 75 18 99 08/14/22 17:47 171/72 H 08/14/22 17:30 72 16 100 08/14/22 17:30 138/103 H 08/14/22 17:15 128/94 08/14/22 17:15 78 14 100 08/14/22 17:00 138/84 08/14/22 17:00 80 16 96 08/14/22 16:45 135/87 08/14/22 16:45 86 14 99 08/14/22 16:30 135/82 08/14/22 16:30 75 20 99 08/14/22 16:15 144/83 H 08/14/22 16:15 78 13 98 08/14/22 16:00 73 17 85 L 08/14/22 16:00 146/79 H 08/14/22 15:45 79 17 97 08/14/22 15:45 132/84 08/14/22 15:30 141/88 H 08/14/22 15:30 76 16 99 08/14/22 15:15 89 19 91 08/14/22 15:15 136/83 08/14/22 15:00 146/82 H 08/14/22 15:00 87 17 100 08/14/22 14:45 146/84 H 08/14/22 14:45 89 20 98 08/14/22 14:30 127/83 08/14/22 14:30 86 12 99 08/14/22 14:00 91 H 20 100 08/14/22 14:00 155/107 H 08/14/22 13:48 159/94 H 08/14/22 13:48 100 H 20 08/14/22 13:44 96 H 15 08/14/22 15:41 75 18 135/82 08/14/22 14:10 98 08/14/22 13:41 37.0 C 91 H 18 162/80 H 98 O2 Del Method 08/14/22 19:15 08/14/22 19:00 08/14/22 18:45 08/14/22 18:15 08/14/22 18:15 08/14/22 18:00 08/14/22 18:00 08/14/22 17:47 08/14/22 17:47 08/14/22 17:30 08/14/22 17:30 08/14/22 17:15 08/14/22 17:15 08/14/22 17:00 08/14/22 17:00 08/14/22 16:45 08/14/22 16:45 08/14/22 16:30 08/14/22 16:30 08/14/22 16:15 08/14/22 16:15 08/14/22 16:00 08/14/22 16:00 08/14/22 15:45 08/14/22 15:45 08/14/22 15:30 08/14/22 15:30 08/14/22 15:15 08/14/22 15:15 08/14/22 15:00 08/14/22 15:00 08/14/22 14:45 08/14/22 14:45 08/14/22 14:30 08/14/22 14:30 08/14/22 14:00 08/14/22 14:00 08/14/22 13:48 08/14/22 13:48 08/14/22 13:44 08/14/22 15:41 08/14/22 14:10 Room Air 08/14/22 13:41 Room Air Laboratory Results Abnormal lab results 08/14/22 08/14/22 08/14/22 Range/Units 14:08 14:08 16:21 WBC 4.27 L (4.8-10.8) K/ul Potassium 3.4 L (3.5-5.1) mmol/L Calcium 10.4 H (8.5-10.1) mg/dl AST 65 H (13-39) U/L Troponin I High Sens 22.8 H D (0-14) pg/ml Albumin 5.1 H (3.4-5.0) gm/dl 08/14/22 Range/Units 19:18 WBC (4.8-10.8) K/ul Potassium (3.5-5.1) mmol/L Calcium (8.5-10.1) mg/dl AST (13-39) U/L Troponin I High Sens 33.1 H D (0-14) pg/ml Albumin (3.4-5.0) gm/dl Diagnostic Findings Chest X-Ray 08/14/22 14:08 XR chest 1V portable HISTORY: Atypical Chest pain, nonspecific COMPARISON: Chest 11/15/2015. FINDINGS: No pneumothorax. No pleural effusions. The lungs are clear. The heart is normal in size. Prior cholecystectomy. IMPRESSION: No acute process. ACT 112: Negative or not required by law. Electronically signed by: Lazaro Gamboa M.D. 08/14/2022 2:34 PM ECG Additional Comments: Normal sinus rhythm Normal ECG When compared with ECG of 21-MAY-2012 21:26, Vent. rate has increased BY 31 BPM. Code Status & VTE Plan Code Status Full Code. Supervising Physician Co-Signing Physician Notes Attending addendum: I have physically seen this patient, have supervised the VALDO's activities, and agree with the H&P unless as otherwise noted. Assessment and Plan: Precordial chest pain/increasing troponin/hypertension- The patient will be admitted to telemetry for serial cardiac enzymes, serial EKG's, cardiac rhythm monitoring and a 2-D echocardiogram with Dopplers. Troponin increasing from 4.4, up to 22.4, up to 33.1 Nitropaste Aspirin Check fasting lipid panel and hemoglobin A1c Consult cardiology Remaining orders and notations as noted PG Care Time/CCT Total # of Minutes Spent Total Time Spent with Patient: Total time spent is greater than 50% in coordination of care (as documented) at patient's floor/unit and/or counseling patient: Coding Level of Care Code INT OBSERVATION CARE 70M LVL 3 Diagnoses Precordial chest pain R07.2 Elevated troponin R77.8 Palpitations R00.2 Hypertension I10 Dyslipidemia E78.5 Asthma J45.909 GERD (gastroesophageal reflux disease) K21.9 Gastroparesis K31.84 Irritable bowel syndrome with diarrhea K58.0 Migraine headache G43.909 Rheumatoid arthritis M06.9 RLS (restless legs syndrome) G25.81
[2022-08-14] MEDS ORDERED: NITROGLYCERIN 2% OINTMENT 30GM TUBE EXT STA (21:08)
[2022-08-14] MEDS ORDERED: POTASSIUM CHLORIDE CRTAB 20 MEQ TABCR PO STA (21:19)
[2022-08-14 22:42] LABS: Lyme Ab IgG w/WB Rflx Negative (Negative); Lyme Ab IgM w/WB Rflx Negative (Negative)
[2022-08-15] MEDS ORDERED: ONDANSETRON INJ 2 MG/ML 2 ML VIAL IV PRN (00:32)
[2022-08-15] MEDS ORDERED: BUTALBITAL/ACETAMIN/CAFFEINE TAB PO PRN (00:32)
[2022-08-15] MEDS ORDERED: ALUMINUM/MAGNESIUM SUSP 30 ML UDC PO PRN (00:32)
[2022-08-15] MEDS ORDERED: predniSONE 10 MG TABLET PO PRN (00:32)
[2022-08-15] MEDS ORDERED: ACETAMINOPHEN 325 MG TAB PO PRN (00:32)
[2022-08-15] MEDS ORDERED: LORazepam 0.5 MG TAB PO PRN (00:32)
[2022-08-15] MEDS ORDERED: LEVALBUTEROL TARTRATE 15 GM HFA.AER.AD INH PRN (00:32)
[2022-08-15] MEDS ORDERED: POLYETHYLENE (MIRALAX) 17 GM PACK PO PRN (00:32)
[2022-08-15] MEDS ORDERED: IBUPROFEN 600 MG TAB PO PRN (00:32)
[2022-08-15] MEDS ORDERED: LOPERAMIDE HCL 2 MG CAP PO PRN (00:32)
[2022-08-15] MEDS ORDERED: RIZATRIPTAN BENZOATE 10 MG TAB PO PRN (00:32)
[2022-08-15] MEDS ORDERED: NITROGLYCERIN SL 0.4 MG/TAB TAB SL PRN (00:32)
[2022-08-15] MEDS ORDERED: MoRPHine SULFATE 2 MG/ML CARP IV PRN (00:32)
[2022-08-15] MEDS ORDERED: SUMAtriptan succinate 6 MG/0.5 ML VIAL SQ STA (01:26)
[2022-08-15] MEDS ORDERED: SUMAtriptan succinate 6 MG/0.5 ML VIAL SQ PRN (01:28)
[2022-08-15] MEDS ORDERED: FLUTICASONE FUROATE 100MCG 14 PUFFS/INHALER INH PRN (01:53)
--- NOTE | 2022-08-15 07:21 | Ultrasound Report ---
LEFT LOWER EXTREMITY VENOUS DOPPLER HISTORY: Left leg pain. Eval for DVT COMPARISON STUDY: None. FINDINGS: There is normal compressibility, flow, and augmentation within the left lower extremity min p venous system. IMPRESSION: No DVT within the left lower extremity. ACT 112: Negative or not required by law. Electronically signed by: Lazaro Gamboa M.D. 08/15/2022 7:20 AM
[2022-08-15] MEDS ORDERED: ERYTHROMYCIN DELAYED RELEASE 250 MG CAP PO SCH (08:00)
[2022-08-15] MEDS: FOLIC ACID 1 MG TAB PO SCH (08:21)
[2022-08-15] MEDS: PANTOprazole 40 MG TAB PO SCH (08:21)
[2022-08-15] MEDS: CHOLECALCIFEROL 5,000 UNITS 125 MCG TAB PO SCH (08:21)
[2022-08-15 08:27] LABS: Chol HDL Ratio 2.9 (0-5)
--- NOTE | 2022-08-15 12:01 | XCELERA ---
[id number]
--- NOTE | 2022-08-15 12:43 | Hospitalist Progress Note ---
Date of Service August 15, 2022 Assessment & Plan (1) Precordial chest pain: Plan: Cardiology consultation appreciated. Troponin series is not trending. EKG #2 was unremarkable. She will have a stress test later today. Will discharge to home if negative. Left leg venous Doppler negative for DVT. (2) Elevated troponin: Plan: Mildly elevated. Not trending (3) Palpitations: Plan: Noticed by patient at home. No significant arrhythmia seen on telemetry while here (4) Hypertension: Plan: Blood pressure is stable at this time. We will follow. (5) Dyslipidemia: Plan: Managed with diet, exercise. Has previously been statin intolerant. (6) Asthma: Plan: - No evidence of acute exacerbation. Continue home inhalers. (7) GERD (gastroesophageal reflux disease): Plan: Continue PPI therapy. (8) Gastroparesis: Plan: Continue azithromycin TID w/ meals. (9) Irritable bowel syndrome with diarrhea: Plan: Continue loperamide, Imodium prn. (10) Migraine headache: Plan: Continue Tylenol or Excedrin, rizatriptan, or sumatriptan prn. Follows w/ neurology as well as pain management for botox injections. (11) Rheumatoid arthritis: Plan: Follows with Rheum, continue Humira, methotrexate w/ folate supplement, prednisone prn. (12) RLS (restless legs syndrome): Plan: Continue Mirapex. Plan We will discharge to home today, August 15, if stress test is negative. Will defer to cardiology recommendations if stress test is positive Admission and Anticipated Discharge Date Admission Date: August 14, 2022 Subjective Alert and oriented. Chest pain-free at this time. EKG #2 is unremarkable. Troponins remain mildly elevated but are not trending. Cardiology consultation noted. Stress test later today. Will discharge home if negative. Left leg venous Doppler negative for DVT. Potassium is mildly low and has been replaced. Review of Systems Review of Systems: Constitutional-no fever or chills ENT-no blurred vision, no double vision, no epistaxis, no sore throat Respiratory-no cough, no wheezing, no shortness of breath Cardiac-no palpitations, no chest pain, no syncope GI-no nausea, vomiting, diarrhea, melena, hematochezia -no urinary retention, no urinary incontinence, no dysuria, no hematuria Musculoskeletal-no joint pain, no muscle tenderness Skin-no bruising, no rashes, no pruritus Neuro-no isolated weakness, no paresthesia, no weakness Psych-no depression, no anxiety Physical Exam Physical Exam: General-alert and oriented x3, no fevers, no chills HEENT-head atraumatic and normocephalic, pupils equal and reactive to light, extraocular muscles intact Neck-no lymphadenopathy or thyromegaly, trachea midline Chest-clear to auscultation percussion. No rales wheezing or rhonchi Cardiac-regular rate and rhythm, normal S1 and S2 Abdomen-normal bowel sounds, nontender, no hepatosplenomegaly Extremities-no cyanosis, clubbing, or edema Neuro-cranial nerves II through XII intact, motor and sensory function within normal limits, strength symmetrical no focal deficits Psych-normal affect, normal mood Results & Data Results & Data ([facility]) Vital Signs (Past 12 Hours) Vital Signs Temp Pulse Pulse Resp BP BP Pulse Ox 08/15/22 12:15 36.9 C 57 L 18 126/83 95 08/15/22 06:07 102 H 08/15/22 07:47 36.8 C 85 16 126/79 99 08/15/22 03:00 37 C 69 18 121/76 97 O2 Del Method 08/15/22 12:15 Room Air 08/15/22 06:07 08/15/22 07:47 Room Air 08/15/22 03:00 Room Air Laboratory Results 08/14/22 14:08 08/14/22 14:08 PG Care Time/CCT Total # of Minutes Spent Total Time Spent with Patient: Total time spent is greater than 50% in coordination of care (as documented) at patient's floor/unit and/or counseling patient: Coding Level of Care Code 37699 Subseq Hosp Care Lvl 3 Diagnoses Precordial chest pain R07.2 Elevated troponin R77.8 Palpitations R00.2 Hypertension I10 Dyslipidemia E78.5 Asthma J45.909 GERD (gastroesophageal reflux disease) K21.9 Gastroparesis K31.84 Irritable bowel syndrome with diarrhea K58.0 Migraine headache G43.909 Rheumatoid arthritis M06.9 RLS (restless legs syndrome) G25.81
[2022-08-15 12:57] LABS: Estimated Average Glucose 97 mg/dl
--- NOTE | 2022-08-15 14:02 | Cardiology Consultation ---
Date of Consultation August 15, 2022 Assessment & Plan (1) Palpitations: (2) Elevated troponin: (3) Dyslipidemia: (4) Sinus tachycardia: (5) Precordial chest pain: Plan ASSESSMENT/PLAN: 1. Chest pain: Etiology uncertain. Symptoms occurred however in the setting of elevated heart rate near 190-200 bpm, suggesting that the discomfort may have been related to a tachyarrhythmia. Recommend outpatient event monitor. Stress echo recommended and completed. No ischemic changes noted on stress echo imaging. 2. Sinus tachycardia: Noted to have sinus tachycardia when she stood up for the stress test. Heart rates were in the 120s while in sinus. Recommend evaluating for causes of secondary tachycardia. No obvious infection however she has not been feeling well in general. Could consider pulmonary embolism given chest discomfort and tachycardia. Primary hospitalist service plans on performing CTA per discussion. TSH was unremarkable. She does not appear to be dehydrated. Could possibly be POTS (increase hydration at home and wear compression stockings). Because she does not feel well with her elevated heart rate, could consider low-dose beta-debbie to improve quality of life while performing further work-up. Outpatient monitor. 3. Palpitations: Her significantly elevated heart rate prior to hospital presentation concerning for tacky arrhythmia. Event monitor ordered. No arrhythmia while here thus far when reviewing telemetry this morning. 4. Elevated troponin: Likely due to her elevated heart rate and possible tachyarrhythmia. Because she had chest discomfort, stress echo recommended and performed. CTA pending per hospitalist service. Given that stress echo was unremarkable for ischemic changes, obstructive CAD less likely and overall presentation more consistent with symptoms from tacky arrhythmia. 5. Dyslipidemia: Intolerant to several statin therapies due to myalgias and also Zetia. Could consider PCSK9 inhibitor if indicated. Mediterranean diet and regular cardiovascular exercise as tolerated. 6. Disposition: Outpatient cardiology follow-up was requested through my office. Outpatient event monitor will be arranged. Patient care and plan communicated with Dr. Causey of the primary hospitalist service. If she remains hospitalized, please call on-call digital marketing executive for any question or concern as I will be away from the hospital. Today's visit was 47 minutes in duration, which includes [id number] time, counseling patient, coordinating care, communication with primary hospitalist service, chart review, and documentation. Thank you for allowing me to participate in the care of your patient. Please call for any other questions or concerns. Sincerely, Shahid Chan M.D. History of Present Illness Reason for Consultation: chest pain Requesting Physician: Grover Causey MD Attending Physician: Grover Causey MD History of Present Illness Mrs. Coburn is a very pleasant 67-year-old female with a history significant for dyslipidemia, gastroparesis, esophageal stricture, and GERD. She was hospitalized on 08/14/2022 with palpitations and chest discomfort. On presentation she was noted to have a normal high-sensitivity troponin of 4.4 which increased to 22.8 and peaked at 33.1, before trending downward. Prior to presentation, she was shoveling snow for approximately 1 hour and felt well while doing such. While in her home, she then felt tired and developed palpitations as though her heart was racing. Pulse oximeter reportedly demonstrated heart rates in the 190s to 200. She developed substernal chest tightness but no shortness of breath. There was no radiation of the pain. Symptoms persisted for approximately 30 minutes. She continued to rest. She drank water. She felt nauseated and lightheaded or dizzy. She called for EMS and she felt better but not yet back to baseline. She continues to feel off her baseline with continued nausea but no vomiting or diarrhea. She has not had any further palpitations and no further chest tightness. She describes her self is quite active and exercises by walking and other aerobic exercise at least 3 days/week. She also is very active, including shoveling snow and other outside activities. She is typically able to exert herself without chest pain or shortness of breath. She denies fevers, syncope, edema, melena, hematochezia, hematuria. Review of systems: As above. Review of systems otherwise negative/unremarkable. Family history: Daughter had tetralogy of Fallot with pulmonary atresia. No known premature CAD. Her mother (Elizabeth Trotter) with hx of HTN and dyslipidemia. Social history: She denies tobacco or drug abuse. Occasional alcohol. She lives at home with her adult daughter. She also has 2 adult sons. She is a . She was unaccompanied in her hospital room. Allergies Allergy/AdvReac Type Severity Reaction Status Date / Time Penicillins Allergy Severe hives Verified 07/09/22 13:40 fluvastatin Allergy Intermediate MUSCLE Verified 07/09/22 13:40 CRAMPS AND PAIN atorvastatin Allergy Mild MUSCLE Verified 07/09/22 13:40 CRAMPS & PAIN fentanyl Allergy Mild HIVES Verified 07/09/22 13:40 pravastatin Allergy Mild MUSCLE Verified 07/09/22 13:40 CRAMPS & CRAMPS rosuvastatin Allergy Mild MUSCLE Verified 07/09/22 13:40 CRAMPS & PAIN simvastatin Allergy Mild MUSCLE Verified 07/09/22 13:40 CRAMPS & PAIN Bactrim AdvReac Intermediate severe Verified 03/24/18 14:09 nausea and vomiting ezetimibe AdvReac Intermediate MUSCLE Verified 07/09/22 13:40 CRAMPS AND PAIN sulfamethoxazole AdvReac Intermediate severe Verified 07/09/22 13:40 nausea and vomiting trimethoprim AdvReac Intermediate severe Verified 07/09/22 13:40 nausea and vomiting divalproex sodium AdvReac Unknown Verified 08/14/22 17:44 [From Depakote] omega-3 acid ethyl esters AdvReac Unknown Verified 08/14/22 17:44 [From Lovaza] topiramate [From Topamax] AdvReac Unknown Verified 08/14/22 17:44 Home Medications Medication Instructions Recorded Confirmed Type folic acid 1 mg tablet 1 mg PO QAM #30 tabs 02/17/19 08/14/22 Rx levalbuterol tartrate 45 2 puff inhalation Q6H PRN 02/17/19 08/14/22 Rx mcg/actuation aerosol inhaler Shortness Of Breath Or Wheezing (Xopenex HFA) #15 grams methotrexate sodium 2.5 mg tablet 15 mg PO WK #6 tabs 02/17/19 08/14/22 Rx prednisone 10 mg tablet 10 mg PO DAILY PRN rheumatoid 09/12/19 08/14/22 History arthritis flare up acspfzsimt-[id number] 2 tab PO DAILY PRN Migraine 12/31/20 08/14/22 Rx 50 mg-325 mg-40 mg tablet Headache #15 tabs adalimumab 40 mg/0.8 mL 40 mg subcut Q14D 01/25/21 08/14/22 History subcutaneous pen kit (Humira Pen) ibuprofen 200 mg tablet 600 mg PO DAILY PRN Pain 01/25/21 08/14/22 History onabotulinumtoxinA 100 unit See Rx Instructions .Route 01/25/21 08/14/22 History solution for injection (Botox) .COMPLEX migraine loperamide 2 mg capsule 2 mg PO Q6H PRN loose stool #30 02/25/21 08/14/22 Rx (Anti-Diarrheal (loperamide)) caps lorazepam 0.5 mg tablet 0.5 mg PO Q8H PRN anxiety #30 tabs 01/23/22 08/14/22 Rx sumatriptan succinate 6 mg/0.5 mL 6 mg (0.5 mL) subcut .COMPLEX PRN 03/24/22 08/14/22 Rx subcutaneous pen injector migraine headache 90 days #6 mL beclomethasone dipropionate 80 1 inh inhalation BID PRN Shortness 05/07/22 08/14/22 History mcg/actuation HFA breath activated Of Breath Or Wheezing aerosol (Qvar RediHaler) rizatriptan 10 mg disintegrating 10 mg PO .COMPLEX PRN Migraine 05/16/22 08/14/22 Rx tablet Headache 90 days #27 tabs dexlansoprazole 60 mg 60 mg PO QAM #30 caps 07/16/22 08/14/22 Rx capsule,biphase delayed release (Dexilant) cholecalciferol (vitamin D3) 125 125 mcg PO DAILY 08/14/22 08/14/22 History mcg (5,000 unit) tablet (Vitamin D3) erythromycin 250 mg tablet 250 mg PO TIDM gastroparesis #90 08/14/22 08/14/22 Rx tabs Patient History Medical History Anemia Asthma well controlled Chronic migraine Colitis suspected. Depression with anxiety Dyslipidemia managed with diet and exercise Esophageal stricture Gastroparesis GERD (gastroesophageal reflux disease) History of esophageal dilatation History of rheumatic fever Hypertension pt denies Irritable bowel syndrome with diarrhea Migraine Periodic limb movement disorder Rheumatoid arthritis Rosacea SCC (squamous cell carcinoma) skin Vitamin D deficiency Weight loss, unintentional ~35lbs over the last 5 months. Surgical History H/O abdominal surgery x5 H/O Achilles tendon repair right H/O arthroscopy of shoulder Left H/O section x3 H/O unilateral salpingectomy after a later date s/p initial hysterectomy and SO History of appendectomy History of esophagogastroduodenoscopy (EGD) History of hysterectomy abdominal hyster with unilateral salpino-oopherectomy History of nasal surgery History of surgical removal of skin lesion S/P cholecystectomy S/P epidural steroid injection S/P foot surgery, right hammer toe S/P hip arthroscopy left Family History Father Epilepsy Vascular disorder Daughter Congenital heart disease Mother Dementia Hypertension Asthma Aunt Breast cancer Other History of blood clots No family history of adverse response to anesthesia Denies family history of Ovarian cancer Prostate cancer Myocardial infarction Colorectal cancer Social History Smoking Status: Former smoker Second Hand Exposure: No; Hx Alcohol Use: Yes Alcohol type: wine Alcohol Intake Frequency: Monthly or Less Hx Substance Use: No Preferred Language: [place] Citizen Communication Ability: Effective Visual Impairment: No Limitations Hearing Ability: Normal Cable Lacer Required: No Beliefs That Will Affect Care: None marital status: Current Living Situation: Family Current Living Situation Comment: lives with handicap daughter current occupational status: retired How many Children do You have: 3 Feels Safe at Home: Yes Childhood Exposure to Second-Hand Smoke: No caffeine: Yes during the past year weight has: remained stable Dental Care, Regularly: Yes Physical Activity Frequency: Daily Seatbelt Use: always Sunscreen Use: Yes Assistive Devices: None Physical Exam Physical Exam: Gen.: No acute distress. Alert and oriented. HEENT: Anicteric sclera. Neck: No JVD. No bruits. Normal carotid upstrokes bilaterally. Cardiac: PMI was nondisplaced. No ventricular heave. Regular. Normal S1-S2. No murmurs, rubs, or gallops. Pulmonary: Clear to auscultation bilaterally without wheezes, rales, or rhonchi. Abdomen: Soft, nontender, nondistended, with normoactive bowel sounds. No bruits noted. Extremities: 2+ radial pulses bilaterally. 2+ posterior tibialis pulses bilaterally. No edema or cyanosis. Psychiatric: Affect appears appropriate. Results & Data ([facility]) Vital Signs (Past 12 Hours) Vital Signs Temp Pulse Pulse Resp BP BP Pulse Ox 08/15/22 12:15 36.9 C 57 L 18 126/83 95 08/15/22 06:07 102 H 08/15/22 07:47 36.8 C 85 16 126/79 99 08/15/22 03:00 37 C 69 18 121/76 97 O2 Del Method 08/15/22 12:15 Room Air 08/15/22 06:07 08/15/22 07:47 Room Air 08/15/22 03:00 Room Air Laboratory Results Laboratory Results - last 24 hr 08/14/22 08/14/22 08/14/22 14:08 14:08 14:08 WBC 4.27 L RBC 4.51 Hgb 14.7 Hct 41.6 MCV 92.2 MCH 32.6 MCHC 35.3 RDW Std Deviation 43.8 RDW Coeff of Aminata 13.3 Plt Count 298 MPV 9.6 Immature Gran % (Auto) 0.2 Neut % (Auto) 55.5 Lymph % (Auto) 31.9 [place] % (Auto) 9.1 Eos % (Auto) 1.9 Baso % (Auto) 1.4 Neut # (Auto) 2.37 Lymph # (Auto) 1.36 [place] # (Auto) 0.39 Eos # (Auto) 0.08 Baso # (Auto) 0.06 Immature Gran # (Auto) 0.01 ESR Sodium 139 Potassium 3.4 L Chloride 101 Carbon Dioxide 27 Anion Gap 11 BUN 7 Creatinine 0.62 Est Cr Clr Drug Dosing 76.0 Est GFR ( Amer) 108.1 Est GFR (Non-Af Amer) 93.3 BUN/Creatinine Ratio 11.3 Glucose 78 Estimat Average Glucose Hemoglobin A1c Calcium 10.4 H Magnesium 2.1 Total Bilirubin 0.8 AST 65 H ALT 52 Alkaline Phosphatase 74 Troponin I High Sens 4.4 C-Reactive Protein Total Protein 8.2 Albumin 5.1 H Globulin 3.1 Albumin/Globulin Ratio 1.6 Triglycerides Cholesterol LDL Cholesterol, Calc VLDL Cholesterol, Calc HDL Cholesterol Cholesterol/HDL Ratio Lipase 22 TSH 1.305 Anaplasma Smear See Comment A. phagocytophilum DNA Babesia Smear See Comment Babesia microti DNA PCR Lyme Disease IgG Ab Lyme Disease IgM Ab SARS-CoV-2, RNA, NAAT 08/14/22 08/14/22 08/14/22 16:21 19:18 19:18 WBC RBC Hgb Hct MCV MCH MCHC RDW Std Deviation RDW Coeff of Aminata Plt Count MPV Immature Gran % (Auto) Neut % (Auto) Lymph % (Auto) [place] % (Auto) Eos % (Auto) Baso % (Auto) Neut # (Auto) Lymph # (Auto) [place] # (Auto) Eos # (Auto) Baso # (Auto) Immature Gran # (Auto) ESR 8 Sodium Potassium Chloride Carbon Dioxide Anion Gap BUN Creatinine Est Cr Clr Drug Dosing Est GFR ( Amer) Est GFR (Non-Af Amer) BUN/Creatinine Ratio Glucose Estimat Average Glucose Hemoglobin A1c Calcium Magnesium Total Bilirubin AST ALT Alkaline Phosphatase Troponin I High Sens 22.8 H D 33.1 H D C-Reactive Protein Total Protein Albumin Globulin Albumin/Globulin Ratio Triglycerides Cholesterol LDL Cholesterol, Calc VLDL Cholesterol, Calc HDL Cholesterol Cholesterol/HDL Ratio Lipase TSH Anaplasma Smear A. phagocytophilum DNA Babesia Smear Babesia microti DNA PCR Lyme Disease IgG Ab Lyme Disease IgM Ab SARS-CoV-2, RNA, NAAT 08/14/22 08/14/22 08/14/22 19:18 19:18 19:18 WBC RBC Hgb Hct MCV MCH MCHC RDW Std Deviation RDW Coeff of Aminata Plt Count MPV Immature Gran % (Auto) Neut % (Auto) Lymph % (Auto) [place] % (Auto) Eos % (Auto) Baso % (Auto) Neut # (Auto) Lymph # (Auto) [place] # (Auto) Eos # (Auto) Baso # (Auto) Immature Gran # (Auto) ESR Sodium Potassium Chloride Carbon Dioxide Anion Gap BUN Creatinine Est Cr Clr Drug Dosing Est GFR ( Amer) Est GFR (Non-Af Amer) BUN/Creatinine Ratio Glucose Estimat Average Glucose Hemoglobin A1c Calcium Magnesium Total Bilirubin AST ALT Alkaline Phosphatase Troponin I High Sens C-Reactive Protein < 0.50 Total Protein Albumin Globulin Albumin/Globulin Ratio Triglycerides Cholesterol LDL Cholesterol, Calc VLDL Cholesterol, Calc HDL Cholesterol Cholesterol/HDL Ratio Lipase TSH Anaplasma Smear Cancelled A. phagocytophilum DNA Babesia Smear Cancelled Babesia microti DNA PCR Lyme Disease IgG Ab Negative Lyme Disease IgM Ab Negative SARS-CoV-2, RNA, NAAT 08/14/22 08/14/22 08/15/22 19:18 20:43 01:09 WBC RBC Hgb Hct MCV MCH MCHC RDW Std Deviation RDW Coeff of Aminata Plt Count MPV Immature Gran % (Auto) Neut % (Auto) Lymph % (Auto) [place] % (Auto) Eos % (Auto) Baso % (Auto) Neut # (Auto) Lymph # (Auto) [place] # (Auto) Eos # (Auto) Baso # (Auto) Immature Gran # (Auto) ESR Sodium Potassium Chloride Carbon Dioxide Anion Gap BUN Creatinine Est Cr Clr Drug Dosing Est GFR ( Amer) Est GFR (Non-Af Amer) BUN/Creatinine Ratio Glucose Estimat Average Glucose Hemoglobin A1c Calcium Magnesium Total Bilirubin AST ALT Alkaline Phosphatase Troponin I High Sens 27.7 H C-Reactive Protein Total Protein Albumin Globulin Albumin/Globulin Ratio Triglycerides Cholesterol LDL Cholesterol, Calc VLDL Cholesterol, Calc HDL Cholesterol Cholesterol/HDL Ratio Lipase TSH Anaplasma Smear A. phagocytophilum DNA Pending Babesia Smear Babesia microti DNA PCR Lyme Disease IgG Ab Lyme Disease IgM Ab SARS-CoV-2, RNA, NAAT NEGATIVE 08/15/22 08/15/22 08/15/22 07:26 07:26 07:26 WBC RBC Hgb Hct MCV MCH MCHC RDW Std Deviation RDW Coeff of Aminata Plt Count MPV Immature Gran % (Auto) Neut % (Auto) Lymph % (Auto) [place] % (Auto) Eos % (Auto) Baso % (Auto) Neut # (Auto) Lymph # (Auto) [place] # (Auto) Eos # (Auto) Baso # (Auto) Immature Gran # (Auto) ESR Sodium Potassium Chloride Carbon Dioxide Anion Gap BUN Creatinine Est Cr Clr Drug Dosing Est GFR ( Amer) Est GFR (Non-Af Amer) BUN/Creatinine Ratio Glucose Estimat Average Glucose 97 Hemoglobin A1c 5.0 Calcium Magnesium Total Bilirubin AST ALT Alkaline Phosphatase Troponin I High Sens 18.2 H D C-Reactive Protein Total Protein Albumin Globulin Albumin/Globulin Ratio Triglycerides Cholesterol LDL Cholesterol, Calc VLDL Cholesterol, Calc HDL Cholesterol Cholesterol/HDL Ratio Lipase TSH Anaplasma Smear A. phagocytophilum DNA Babesia Smear Babesia microti DNA PCR Pending Lyme Disease IgG Ab Lyme Disease IgM Ab SARS-CoV-2, RNA, NAAT 08/15/22 07:26 WBC RBC Hgb Hct MCV MCH MCHC RDW Std Deviation RDW Coeff of Aminata Plt Count MPV Immature Gran % (Auto) Neut % (Auto) Lymph % (Auto) [place] % (Auto) Eos % (Auto) Baso % (Auto) Neut # (Auto) Lymph # (Auto) [place] # (Auto) Eos # (Auto) Baso # (Auto) Immature Gran # (Auto) ESR Sodium Potassium Chloride Carbon Dioxide Anion Gap BUN Creatinine Est Cr Clr Drug Dosing Est GFR ( Amer) Est GFR (Non-Af Amer) BUN/Creatinine Ratio Glucose Estimat Average Glucose Hemoglobin A1c Calcium Magnesium Total Bilirubin AST ALT Alkaline Phosphatase Troponin I High Sens C-Reactive Protein Total Protein Albumin Globulin Albumin/Globulin Ratio Triglycerides 79 Cholesterol 232 H LDL Cholesterol, Calc 136 VLDL Cholesterol, Calc 16 HDL Cholesterol 80 Cholesterol/HDL Ratio 2.9 Lipase TSH Anaplasma Smear A. phagocytophilum DNA Babesia Smear Babesia microti DNA PCR Lyme Disease IgG Ab Lyme Disease IgM Ab SARS-CoV-2, RNA, NAAT Diagnostic Findings Telemetry personally reviewed: Sinus rhythm with sinus tachycardia this morning. No arrhythmia. ECG personally reviewed: ECG 08/15/2022 at 7:41 AM: NSR 82 bpm. Normal ECG. ECG 08/14/2022 at 1344: Sinus 92 bpm. Normal ECG Echo 08/14/2022: Hyperdynamic LV systolic function. EF > 70%. Normal wall motion. No significant valvular abnormalities. Normal RVSP. Left lower extremity venous Doppler 08/14/2022: No DVT. Chest x-ray 08/14/2022: No acute process. Medications Administered Current Inpatient Medications Acetaminophen (Acetaminophen 325 Mg Tab) 650 mg PO Q4H PRN PRN Reason: Pain or Fever Stop: 09/14/22 00:31 Acetaminophen/Butalbital/Caffeine (Butalbital/Acetamin/Caffeine Tab) 2 tab PO DAILY PRN PRN Reason: Migraine Headache Stop: 09/14/22 00:31 Last Admin: 08/15/22 00:57 Dose: 2 tab Al Hydrox/Mg Hydrox/Simethicone (Aluminum/Magnesium Susp 30 Ml Udc) 15 ml PO Q4H PRN PRN Reason: Dyspepsia Stop: 09/14/22 00:31 Fluticasone Furoate (Fluticasone Furoate 100mcg 14 Puffs/Inhaler) 1 puffs INH DAILY PRN PRN Reason: Shortness Of Breath Or Wheezin Stop: 09/14/22 01:52 Folic Acid (Folic Acid 1 Mg Tab) 1 mg PO QAM [facility] Stop: 09/14/22 08:59 Last Admin: 08/15/22 08:21 Dose: 1 mg Ibuprofen (Ibuprofen 600 Mg Tab) 600 mg PO DAILY PRN PRN Reason: Pain Stop: 09/14/22 00:31 Levalbuterol HCl (Levalbuterol Tartrate 15 Gm Hfa.Aer.Ad) 2 puffs INH Q6H PRN PRN Reason: Shortness Of Breath Or Wheezin Stop: 09/14/22 00:31 Loperamide HCl (Loperamide Hcl 2 Mg Cap) 2 mg PO Q6H PRN PRN Reason: loose stool Stop: 09/14/22 00:31 Lorazepam (Lorazepam 0.5 Mg Tab) 0.5 mg PO Q8H PRN PRN Reason: anxiety Stop: 09/14/22 00:31 Miscellaneous (Erythromycin- Order Awaiting Action) 1 each N/A QS [facility] Stop: 09/14/22 15:59 Morphine Sulfate (Morphine Sulfate 2 Mg/Ml Carp) 2 mg IV Q30M PRN PRN Reason: Chest Pain Stop: 08/29/22 00:31 Nitroglycerin (Nitroglycerin Sl 0.4 Mg/Tab Tab) 0.4 mg SL UD PRN PRN Reason: Chest Pain Stop: 09/14/22 00:31 Ondansetron HCl (Ondansetron Inj 2 Mg/Ml 2 Ml Vial) 4 mg IV Q6H PRN PRN Reason: Nausea Stop: 09/14/22 00:31 Last Admin: 08/15/22 00:57 Dose: 4 mg Pantoprazole Sodium (Pantoprazole 40 Mg Tab) 40 mg PO QAM [facility] Stop: 09/14/22 08:59 Last Admin: 08/15/22 08:21 Dose: 40 mg Polyethylene Glycol (Polyethylene (Miralax) 17 Gm Pack) 17 gm PO DAILY PRN PRN Reason: Constipation Stop: 09/14/22 00:31 Rizatriptan Benzoate (Rizatriptan Benzoate 10 Mg Tab) 10 mg PO DAILY PRN PRN Reason: Migraine Headache Stop: 09/14/22 00:31 Sumatriptan Succinate (Sumatriptan Succinate 6 Mg/0.5 Ml Vial) 6 mg SQ DAILY PRN PRN Reason: migraine headache Stop: 09/14/22 01:27 Vitamin D (Cholecalciferol 5,000 Units 125 Mcg Tab) 5,000 units PO DAILY [facility]A Stop: 09/14/22 08:59 Last Admin: 08/15/22 08:21 Dose: 5,000 units PG Care Time/CCT Total # of Minutes Spent Total Time Spent with Patient: Total time spent is greater than 50% in coordination of care (as documented) at patient's floor/unit and/or counseling patient: Coding Level of Care Code 58655 Office/Outpt Visit, New Diagnoses Palpitations R00.2 Elevated troponin R77.8 Dyslipidemia E78.5 Sinus tachycardia R00.0 Precordial chest pain R07.2 Time Spent (min) 47
[2022-08-15] MEDS ORDERED: OPTIRAY 320 500ml IV ONE (15:24)
--- NOTE | 2022-08-15 15:35 | XCELERA ---
[id number]
--- NOTE | 2022-08-15 16:18 | CT Scan Report ---
CT angio chest PE protocol CLINICAL HISTORY: chest pain TECHNIQUE: Multidetector row helical CT of the chest was performed with angiographic protocol. Padron l and sagittal reformations were obtained. Coronal and sagittal MIPS were obtained from the axial jonathna a set and were submitted for review. Automated dose lowering techniques and/or adjustment according to patient size were utilized for this exam. CT DOSE: 265.63 mGy.cm Comparison: Comparison is made to chest 11/27/2015 FINDINGS: Lungs and pleura: Biapical scarring is seen. Heart and pericardium: Heart size is normal. No pericardial effusion. Vessels: No evidence of pulmonary embolism. Mediastinum and daphne: Unremarkable. Chest wall and lower neck: Unremarkable. Abdomen: Unremarkable. Bones: Degenerative changes in the thoracic spine. IMPRESSION: No evidence of pulmonary embolism. ACT 112: Negative or not required by law. Electronically signed by: Alexander Antony M.D. 08/15/2022 4:17 PM
[2022-08-15] MEDS: METOPROLOL TARTRATE 25 MG TAB PO SCH (21:04)
--- NOTE | 2022-08-15 22:54 | Electrocardiogram Report ---
Test Reason : Blood Pressure : / mmHG Vent. Rate : 082 BPM Atrial Rate : 082 BPM P-R Int : 144 ms QRS Dur : 070 ms QT Int : 378 ms P-R-T Axes : 072 -11 054 degrees QTc Int : 441 ms Normal sinus rhythm Normal ECG When compared with ECG of 14-AUG-2022 13:44, No significant change was found Confirmed by Donny Chan ([id number]) on 08/15/2022 10:54:11 PM Referred By: REFERRED SELF Confirmed By:Donny Chan
--- NOTE | 2022-08-15 22:54 | Electrocardiogram Report ---
Test Reason : Blood Pressure : / mmHG Vent. Rate : 092 BPM Atrial Rate : 092 BPM P-R Int : 152 ms QRS Dur : 070 ms QT Int : 344 ms P-R-T Axes : 079 -01 060 degrees QTc Int : 425 ms Normal sinus rhythm Normal ECG When compared with ECG of 21-MAY-2012 21:26, Vent. rate has increased BY 31 BPM Confirmed by Donny Chan ([id number]) on 08/15/2022 10:53:54 PM Referred By: REFERRED SELF Confirmed By:Donny Chan
[2022-08-16 07:22] LABS: BUN Creatinine Ratio 18.5 (10-20); Calcium 8.7 mg/dl (8.5-10.1); Creatinine Clr Calc Pharmacy 72.5 ml/min; Est GFR (African American) 106.5 ml/min; Est GFR (Non-African American) 91.9 ml/min; Potassium 3.9 mmol/L (3.5-5.1)
[2022-08-16] MEDS: PANTOprazole 40 MG TAB PO SCH (08:12)
[2022-08-16] MEDS: FOLIC ACID 1 MG TAB PO SCH (08:12)
[2022-08-16] MEDS: METOPROLOL TARTRATE 25 MG TAB PO SCH (08:12)
[2022-08-16] MEDS: CHOLECALCIFEROL 5,000 UNITS 125 MCG TAB PO SCH (08:12)
--- NOTE | 2022-08-16 15:08 | Discharge Summary ---
Date of Service August 16, 2022 Admission HPI Per Admitting Provider Lita Coburn is a 67-year-old female with a past medical history significant for dyslipidemia, hypertension, asthma, rheumatoid arthritis, GERD, gastroparesis, IBS, depression, and anxiety who is presenting today with an episode of chest pain at home. Patient had been shoveling snow outside this morning and actually felt fine while shoveling, however it was when she went into the house to sit down when she felt her heart began to race. She was on the phont with a friend when she suddenly felt her heart pound, became dizzy with chest pain and abruptly ended her call to call an ambulance. She estimates her heart rate had been in the 200s was associated with a mild central chest pain. She felt nauseous during the event without any vomiting, pain in her arms, shoulders, neck, jaw, or back. She was not short of breath or diaphoretic. The episode lasted 30 minutes before subsiding on its own. She denies any unilateral leg swelling or leg pain, pain with respirations during the event, but does has some mild low left chest pain with respirations now, very minor and she questions if this is GI related with her multiple GI issues. No recent upper respiratory illnesses or sick contacts. Patient has no cardiac history, specifically denies a history of heart attacks, heart failure, atrial fibrillation, or other dysrhythmias. She has one older sister with unspecified cardiac disease after age 65 and a daughter with congenital heart defect. No other siblings or parents with cardiac disease. She is regularly active, doing all her own yard work and has never experienced chest pain palpitations like this before with any activity. She does not smoke, drinks ~1-2 glasses of wine/month, not a diabetic but notes her cholesterol has always been high but statins make her achy. She is open to trying statin therapy again if it is recommended. On presentation to the ED, she is hemodynamically stable and all vital signs are within normal limits. Labs notable for an initial troponin of 4.4 that elevated to 22.8 after 2 hours while in the ED, WBC of 4, potassium 3.4, AST 65, otherwise labs within normal limits. CXR unremarkable. Her EKG on presentation shows normal sinus rhythm without any ST segment or T wave changes. Principal Diagnosis Palpitations, tachyarrhythmianormal stress echo Discharge Exam at 1400 h, felt fine. Has been ambulating on her own. No palpitations since the day of admission. Is quite active and shovel snow often without any symptoms. Had presyncope while shoveling snow followed by tachycardia on the day of admission. No history of coronary artery disease. No history of diabetes mellitus, no syncope. Occasionally gets dizzy when she gets up from a sitting position denies any PND and sleeps on 2 pillows to avoid gastric reflux symptoms. Mostly ankles and knees hurt from rheumatoid arthritis. Discharge Data Allergies Allergy/AdvReac Type Severity Reaction Status Date / Time Penicillins Allergy Severe hives Verified 07/09/22 13:40 fluvastatin Allergy Intermediate MUSCLE Verified 07/09/22 13:40 CRAMPS AND PAIN atorvastatin Allergy Mild MUSCLE Verified 07/09/22 13:40 CRAMPS & PAIN fentanyl Allergy Mild HIVES Verified 07/09/22 13:40 pravastatin Allergy Mild MUSCLE Verified 07/09/22 13:40 CRAMPS & CRAMPS rosuvastatin Allergy Mild MUSCLE Verified 07/09/22 13:40 CRAMPS & PAIN simvastatin Allergy Mild MUSCLE Verified 07/09/22 13:40 CRAMPS & PAIN Bactrim AdvReac Intermediate severe Verified 03/24/18 14:09 nausea and vomiting ezetimibe AdvReac Intermediate MUSCLE Verified 07/09/22 13:40 CRAMPS AND PAIN sulfamethoxazole AdvReac Intermediate severe Verified 07/09/22 13:40 nausea and vomiting trimethoprim AdvReac Intermediate severe Verified 07/09/22 13:40 nausea and vomiting divalproex sodium AdvReac Unknown Verified 08/14/22 17:44 [From Depakote] omega-3 acid ethyl esters AdvReac Unknown Verified 08/14/22 17:44 [From Lovaza] topiramate [From Topamax] AdvReac Unknown Verified 08/14/22 17:44 Consultations 08/14/22 21:24 ED Decision to Admit Stat 08/15/22 08:32 Consult Cardiology Routine Procedures Performed Stress echo:here care: Negative for ischemia LVEF greater than 70% with no significant LVH and no valve abnormalities Ordered Studies 08/14/22 21:07 US venous doppler LE LT Urgent 08/15/22 14:08 CT angio chest PE protocol Urgent Diabetes Follow up NA Hospital Course (1) Precordial chest pain: - Initial troponin 4.4, with 2-hour repeat 22.4, subsequent 2 hour repeat 33.1. No previous cardiac history Stress echo has revealed no ischemic abnormalities - Telemetry last 24 hours has only revealed sinus tachycardia and maximum heart rate on vital signs was 102 Metoprolol was started. No history of hypertension (2) Elevated troponin: Cardiology saw herdemand ischemia. Stress echo negative negative for ischemia. (3) Palpitations: Short lasting and only on day of admission post shoveling (4) Hypertension: - No longer on medications, is moderately hypertensive in ED, could very well be environment related rather than true indication of BP control. Will monitor pressure overnight and intervene if she become symptomatic with recurrent chest pain. On metoprolol 25 mg twice daily, vitals at time of discharge: 107/72, 76, 18, 36.5, 99% room air (5) Dyslipidemia: - Managed with diet, exercise. Has previously been statin intolerant. - Lipid panel here: cholesterol 232, LDL 136, HDL 80, triglycerides 79 (6) Asthma: - No evidence of acute exacerbation. Continue home inhalers. (7) GERD (gastroesophageal reflux disease): - Continue PPI therapy. (8) Gastroparesis: - Continue azithromycin TID w/ meals. (9) Irritable bowel syndrome with diarrhea: - Continue loperamide, Imodium prn. (10) Migraine headache: - Continue Tylenol or Excedrin, rizatriptan, or sumatriptan prn. - Follows w/ neurology as well as pain management for botox injections. (11) Rheumatoid arthritis: - Follows with Rheum, continue Humira, methotrexate w/ folate supplement, prednisone prn. (12) RLS (restless legs syndrome): - Continue Mirapex. Plan - Discharge home with follow-up with PCP within 2 weeks. Clinically doing quite well. I first met her on the day of discharge. Total Time Total Time Spent Total Time Spent (In Minutes): 32 Discharge Plan Discharge Items Patient Disposition: Home - Self-Care Reason For Visit: CHEST PAIN Discharge Diagnosis: Palpitations and chest painnormal stress echo Condition on Discharge: Good Activity: Resume your previous activity Non-emergency contact: Primary Care Provider Call non-emergency contact if: you have any medication questions and your symptoms worsen Follow-up/Referrals: Aurelia Cabral DO [Primary Care Provider] - Diet: Heart Healthy Addtl Attending Provider Instructions: 1. See PCP within 2 weeks and consider taking calcium w Vit D isntead of Vit D alone. 2. DO NOT take tylenol the day you need to take butalbitol-acetaminophen- caffeine for migraine Pending Studies at Discharge: No Medications and DC Order Prescriptions: New metoprolol tartrate 25 mg Tablet 25 mg PO BID Qty: 30 1RF acetaminophen 325 mg Tablet 650 mg PO Q4H PRN (Reason: pain) Qty: 10 0RF Continued loperamide [Anti-Diarrheal (loperamide)] 2 mg capsule 2 mg PO Q6H PRN (Reason: loose stool) Qty: 30 2RF lorazepam 0.5 mg tablet 0.5 mg PO Q8H PRN (Reason: anxiety) Qty: 30 0RF rizatriptan 10 mg tablet,disintegrating 10 mg PO .COMPLEX PRN (Reason: Migraine Headache) 90 Days Qty: 27 3RF Rx Instructions: Take 1 at onset of migraine, may repeat after 2 hours prn, limit 2-3 days/week Dexilant 60 mg capsule,biphase delayed releas 60 mg PO QAM Qty: 30 4RF erythromycin 250 mg tablet 250 mg PO TIDM Qty: 90 0RF folic acid 1 mg tablet 1 mg PO QAM Qty: 30 0RF levalbuterol tartrate [Xopenex HFA] 45 mcg/actuation HFA aerosol inhaler 2 puff Inhalation Q6H PRN (Reason: Shortness Of Breath Or Wheezing) Qty: 15 0RF methotrexate sodium 2.5 mg tablet 15 mg PO WK Qty: 6 0RF Rx Instructions: thursday prednisone 10 mg tablet 10 mg PO DAILY PRN (Reason: rheumatoid arthritis flare up) Rx Instructions: take 40 mg first day then take 20 mg the next day as needed [id number]-dlbqbmhtjlcrz-dugy 50-325-40 mg tablet 2 tab PO DAILY PRN (Reason: Migraine Headache) Qty: 15 0RF Rx Instructions: 2 days a week or less prn sumatriptan succinate 6 mg/0.5 mL pen injector 6 mg SQ .COMPLEX PRN (Reason: migraine headache) 90 Days Qty: 6 3RF Rx Instructions: Inject at onset of migraine, may repeat in 2 hours prn, limit to 2-3 days/week Qvar RediHaler 80 mcg/actuation HFA aerosol breath activated 1 inh INHALATION BID PRN (Reason: Shortness Of Breath Or Wheezing) Botox 100 unit recon soln See Rx Instructions .ROUTE .COMPLEX Rx Instructions: As directed, [facility] ; ibuprofen 200 mg tablet 600 mg PO DAILY PRN (Reason: Pain) Humira Pen 40 mg/0.8 mL pen injector kit 40 mg SUBCUT Q14D Rx Instructions: Fridays cholecalciferol (vitamin D3) [Vitamin D3] 125 mcg (5,000 unit) Tablet 125 mcg PO DAILY Discharge Orders: Discharge Order (Routine); Ordered 08/16/22 Ordered By: Kendall Dorado Admission Data Admit Date/Time: 08/14/22 21:12 Attending Provider: Kendall Dorado Admit Provider: Vic Chery Primary Care Provider: Aurelia Cabral Other Providers: Vic Chery ; Torey Earl ; Chu Gramajo ; Paul Posada ; Rush Wheatley ; Merlin Leigh ; Ministerio Glaser Jr ; Donny Chan ; Pauline Salinas ; Em Yee ; Samm Ramos ; Jalen Ramirez ; Grover Fernandez ; Jessica Kuo ; Fátima Rodriguez ; Jonathan Angelo ; Colin Amezquita ; Benedicto Toribio ; Rush Tracy V. ; Grover Causey Coding Level of Care Code 47015 OBS Care - Discharge Diagnoses Precordial chest pain R07.2 Elevated troponin R77.8 Palpitations R00.2 Hypertension I10 Dyslipidemia E78.5 Asthma J45.909 GERD (gastroesophageal reflux disease) K21.9 Gastroparesis K31.84 Irritable bowel syndrome with diarrhea K58.0 Migraine headache G43.909 Rheumatoid arthritis M06.9 RLS (restless legs syndrome) G25.81
[2022-08-19 11:19] LABS: Babesia microti DNA Not Detected (Not Detected)
== END 2022-08-16 15:30 | disposition home or self-care (01) ==
LOC: ED 13:36 → INTOOBSV 21:12 → 2N 21:12 → SUATTDRO 21:12 → 2N 08-15 00:07
DX: K58.0 Irritable bowel syndrome with diarrhea; R00.2 Palpitations; R00.0 Tachycardia, unspecified; Z88.8 Allergy status to other drugs, medicaments and biological substances; Z87.891 Personal history of nicotine dependence; Z88.2 Allergy status to sulfonamides; R77.8 Other specified abnormalities of plasma proteins; M06.9 Rheumatoid arthritis, unspecified; K31.84 Gastroparesis; R07.2 Precordial pain; Z79.899 Other long term (current) drug therapy; G25.81 Restless legs syndrome